=== PATIENT | female | born 2000 | race Caucasian/White ===

== ENCOUNTER → 2024-08-01 08:00 | Outpatient (BNV) | payer OTHER, SELFPAY | PROVIDERS: Visit Provider Psychiatry & Neurology Psychiatry | DX: F32.2 Major depressive disorder, single episode, severe without psychotic features (principal); F41.1 Generalized anxiety disorder | CPT/HCPCS: 90834; 99213; 99214 ==

== ENCOUNTER 2024-08-22 10:30 | Outpatient (RCR) | payer OTHER, SELFPAY ==
[2024-08-01 09:38] VITALS: BMI 33.6
[2024-08-01 09:39] VITALS: BP 130/72; PULSE 80; TEMP 36.9
--- NOTE | 2024-08-01 10:37 | PC.NURSE ---
Patient reports she does not have a PCP. Maryuri called [facility] in my office and scheduled a New PCP appointment with [facility]. [address] [place] [address]. Office Number [phone]. Appointment on October 30, 2024 at 4:00pm with Dr. Steven Adam.
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
--- NOTE | 2024-08-01 15:59 | P.HPPSP_ITS ---
HPI Date of Service: 08/01/24 Chief Complaint: MDD,DANIS Sources of Information: patient interviewed, chart reviewed and crisis/core team assessment reviewed HPI Narrative: This is the 1st PHP admission for this 24-year-old female referred by her [facility] therapist to gain some tools to improve functioning. ?I have always had struggles with anxiety and depression. Anxiety has been lifelong particularly generalized anxiety has always been prone to worrying, more recently experiencing increased heart rate shortness of breath chest tightness in other panic attack symptoms at times. Anxiety also has been interfering with sleep and notices onset of sleep has been disturbed particularly in the past week. She says lately though her depression has been worse. Appetite is recently worse. Depression severity between a 6 and an 8 out of 10. She has been on Lexapro since April 2024, dose has been slowly titrated to 15 mg daily. She says she has not been able to tell if the Lexapro was helpful. She was then started on Wellbutrin XL 150 mg 1 week ago. She denies any clear precipitant over the last few months although there has been psychosocial stressors that have been compounding depression anxiety including issues with her family including her mother and brother getting into an argument brother was kicked out of the house there is currently a restraining order. She also reports break-up with her boyfriend about a month ago and notes that her best friend is currently contending with her own mental health issues and was admitted inpatient so she has not been able to talk with her. Past Psychiatric History: No IPLOC, PHP, respite or detox/rehab admissions SA: Denies SIB: Denies Denies any history suggestive obsessions rituals or other symptoms of OCD Denies any EDB Therapist: Tavia Villalta Psych provider: Corin Patton PCP: none No previous medication trials aside from current medications CURRENT MEDICATIONS: Lexapro 15 mg qd Wellbutrin XL 150 mg qam [facility] Medical History (Updated 08/03/24 @ 00:32 by Montserrat Wilcox MD) Eczema Chronic back pain Concussion Diagnostics Vital Signs (24Hr): Vital Signs - 24 hr 08/01/24 09:39 Temperature 98.4 F Pulse Rate 80 Blood Pressure 130/72 BMI result Body Mass Index 33.6 Meds/Allergies Meds Home Medications ?Medication ?Instructions ?Recorded ?Confirmed ?Type bupropion HCl 150 mg 24 hr tablet, 150 mg PO DAILY 08/01/24 08/01/24 History extended release norethindrone 1 mg-ethinyl 1 tab PO DAILY 08/01/24 08/01/24 History estradiol 20 mcg (21)-iron 75 mg (7) tablet Allergies Allergies Allergy/AdvReac Type Severity Reaction Status Date / Time lactose AdvReac Gastrointestinal Verified 08/01/24 12:46 Upset pineapple AdvReac Flushing Verified 08/01/24 09:38 Mental Status Exam Mental Status Exam Narrative: Alert, oriented, in no acute distress. Calm, cooperative, engaged. No psychomotor agitation or neurovegetative retardation. Eye contact maintained. Mood depressed, anxious, affect variable, mood congruent. Speech normal. Thought process linear, coherent. Thought content related to stressors, denies any hopelessness or SI. Denies any aggressive ideation or HI. No paranoia or delusional content elicited. No evidence of psychosis. Insight and judgment - fair but adequate. Assessment & Plan Assessment & Plan (1) MDD (major depressive disorder), severe: Status: Acute Code(s): F32.2 - Major depressive disorder, single episode, severe without psychotic features (2) DANIS (generalized anxiety disorder): Status: Acute Code(s): F41.1 - Generalized anxiety disorder Plan Admit to [facility] VS reviewed: afebrile, BP 130/72;?80 bpm stop WEllbutrin XL 150 mg qam (likely too long-acting, interfering with onset of sleep) start Wellbutrin SR 100 mg qam start guanfacine ER 1 mg qam continue other regular medications: Lexapro 15 mg qd ssjgqmotuowwq-wbbukvaqb-iswh daily Routine lab work ordered as indicated EKG, routine for baseline QTc for medication considerations as indicated UDS as indicated [facility] reviewed Continue to monitor as per protocol Patient educated on: diagnosis and medication risk/benefits Informed Consent: understands Reason for continued partial hosp. stay Substantial Risk for: inability to function and med/psych decompensation Certification I certify that partial hospital treatment is medically necessary due to the symptoms and problems resulting from the patient's mental illness and the failure to treat the patient at the partial hospital level of care would likely result in the patient requiring inpatient psychiatric care which could not be prevented at a less intensive level of care. Time Spent With Patient Time: Total time managing care of this patient today __90__ minutes.
[2024-08-05 11:46] VITALS: BP 108/60; PULSE 68
--- NOTE | 2024-08-11 18:53 | HO.PHPPROGNO ---
Subjective Subjective Date of Service: 08/11/24 Reason For Visit: MDD,DANIS Interim History: ?I have just been very down. I am still in the same place? Last week felt like things were easing up on and Sunday but then over the weekend continued to otherwise feel depressed has been weepy, sad. ?I get hungry but I do not want to eat?. She has been sleeping more she did feel it was good to switch to the Wellbutrin SR as the XL formulation she found was in fact making it difficult to fall asleep in that area things are better. She complains of anxiety during the day and feeling like she has adjusted to being here still finding groups little anxiety provoking however she has not yet started on guanfacine. Depression severity 8/10, cognitive anxiety 7.5/10, somatic anxiety 6.5 to 7/10. She did not denies any SI HI AH or VH Medication Compliance: Yes Side effects from medications: No Attending Groups: Yes Review of Systems Acute medical concerns: No Mental Status Exam Mental Status Exam Narrative: Alert, oriented, in no acute distress. Calm, cooperative, engaged. No psychomotor agitation or neurovegetative retardation. Eye contact maintained. Mood depressed, anxious, affect sad, tearful. Speech normal. Thought process linear, coherent. Thought content related to stressors, denies any hopelessness or SI. Denies any aggressive ideation or HI. No paranoia or delusional content elicited. No evidence of psychosis. Insight and judgment intact. Diagnostics Vital Signs (24Hr): BMI result Body Mass Index 33.6 Assessment & Plan Assessment & Plan (1) MDD (major depressive disorder), severe: Status: Acute Code(s): F32.2 - Major depressive disorder, single episode, severe without psychotic features (2) DANIS (generalized anxiety disorder): Status: Acute Code(s): F41.1 - Generalized anxiety disorder Plan Cont PHP start Abilify 1-2 mg qhs cont Wellbutrin SR 100 mg qam start guanfacine ER 1 mg qam cont Lexapro to 10 mg qd cont other regular medications: vvzdfqfnlssww-amcycpmzu-wdtv daily Routine lab work ordered as indicated EKG, routine for baseline QTc for medication considerations as indicated UDS as indicated Continue to monitor Certification I certify that partial hospital treatment is medically necessary due to the symptoms and problems resulting from the patient's mental illness and the failure to treat the patient at the partial hospital level of care would likely result in the patient requiring inpatient psychiatric care which could not be prevented at a less intensive level of care. Total time managing care of this patient today ____ minutes. Discharge Plan Discharge Attending provider: Montserrat Wilcox Additional Instructions: New PCP appointment with [facility] [place] [address] [place] [address]. Office Number [phone]. Appointment on October 30, 2024 at 4:00pm with Dr. Steven Adam. Medications: New bupropion HCl 100 mg tablet sustained-release 12 hr 100 mg PO QAM Qty: 15 0RF guanfacine 1 mg tablet extended release 24 hr 1 mg PO DAILY Qty: 15 0RF aripiprazole 2 mg tablet 2 mg PO BEDTIME Qty: 14 0RF Continued escitalopram oxalate 10 mg tablet 10 mg PO DAILY Qty: 15 0RF escitalopram oxalate 5 mg tablet 5 mg PO DAILY Qty: 15 0RF Rx Instructions: Take with 10 mg tab total dose 15 mg daily. No Action norethindrone-e.estradiol-iron 1 mg-20 mcg (21)/75 mg (7) tablet 1 tab PO DAILY bupropion HCl 150 mg tablet extended release 24 hr 150 mg PO DAILY Stand Alone Forms: Patient Portal Discharge page Print Language: Spanish
--- NOTE | 2024-08-15 12:58 | HO.PHPPROGNO ---
Subjective Subjective Date of Service: 08/15/24 Reason For Visit: MDD,DANIS Interim History: Patient seen for due to ensuing panic attack this morning after finding out she is slated for discharge today. Patient was fairly labile and tearful at onset of [place]outner. She says she has been crying on and off for the past 2-3 days. Feeling still very weepy, difficulty containing her emotions which are mostly sad. Anxiety is problematic and persist through out the day. She says she does not feel prepared for discharge today does not feel she has steady enough to be without the supports, ?I do not want to backtrack but I am not sure what to do I just feel overwhelmed .She has been tolerating the medication, felt that it may have been helping but was a modest improvement at start on 1 mg but now feels this has been clips by her anxieties around discharge and is feeling consumed by apprehension about leaving the program before being stabilized by medication. We will continue to titrate Abilify to to 2-3 mg over the weekend will advocate for an extension in her stay at [facility]. Medication Compliance: Yes Side effects from medications: No Attending Groups: Yes Review of Systems Acute medical concerns: No Mental Status Exam Mental Status Exam Narrative: Alert, oriented, in no acute distress. Restless, tearful, shut down. Mood depressed, anxious, affect sad, tearful. Speech normal. Thought process linear, coherent. Thought content related to stressors, demoralization, helplessness, transient hopelessness, denies any SI. Denies any aggressive ideation or HI. No paranoia or delusional content elicited. No evidence of psychosis. Insight and judgment intact. Diagnostics Vital Signs (24Hr): BMI result Body Mass Index 33.6 Assessment & Plan Assessment & Plan (1) MDD (major depressive disorder), severe: Status: Acute Code(s): F32.2 - Major depressive disorder, single episode, severe without psychotic features (2) DANIS (generalized anxiety disorder): Status: Acute Code(s): F41.1 - Generalized anxiety disorder Plan Extend [facility] increase Abilify to 2-3 mg qhs cont Wellbutrin SR 100 mg qam cont guanfacine ER 1 mg qam cont Lexapro to 10 mg qd cont other regular medications: qmisognptejpj-xmmkrmgwy-wlmu daily Routine lab work ordered as indicated EKG, routine for baseline QTc for medication considerations as indicated UDS as indicated Continue to monitor Patient educated on: diagnosis and medication risk/benefits Informed Consent: understands Reason for contiued partial hosp. stay Substantial Risk for: inability to function, rapid decompensation and med/psych decompensation Certification I certify that partial hospital treatment is medically necessary due to the symptoms and problems resulting from the patient's mental illness and the failure to treat the patient at the partial hospital level of care would likely result in the patient requiring inpatient psychiatric care which could not be prevented at a less intensive level of care. Total time managing care of this patient today __30__ minutes. Discharge Plan Discharge Attending provider: Montserrat Wilcox Additional Instructions: New PCP appointment with [facility] [place], [place] [address] [place] [address]. Office Number [phone]. Appointment on October 30, 2024 at 4:00pm with Dr. Steven Adam. Medications: New guanfacine 1 mg tablet extended release 24 hr 1 mg PO DAILY Qty: 15 0RF aripiprazole 2 mg tablet 2 mg PO BEDTIME Qty: 14 0RF Continued escitalopram oxalate 10 mg tablet 10 mg PO DAILY Qty: 15 0RF escitalopram oxalate 5 mg tablet 5 mg PO DAILY Qty: 15 0RF Rx Instructions: Take with 10 mg tab total dose 15 mg daily. Changed bupropion HCl 100 mg tablet sustained-release 12 hr 100 mg PO BID Qty: 30 0RF No Action norethindrone-e.estradiol-iron 1 mg-20 mcg (21)/75 mg (7) tablet 1 tab PO DAILY bupropion HCl 150 mg tablet extended release 24 hr 150 mg PO DAILY Stand Alone Forms: Patient Portal Discharge page Print Language: Senegalese
--- NOTE | 2024-08-15 15:07 | HO.PHP ---
The patient was referred for an extension in the Program and this clinician received a call from the insurance and the concurrent review was scheduled for August 18, 2024 at 11:00 am.
--- NOTE | 2024-08-18 23:58 | HO.PHPPROGNO ---
Subjective Subjective Date of Service: 08/18/24 Reason For Visit: MDD,DANIS Medication Compliance: Yes Side effects from medications: No Attending Groups: Yes Review of Systems Acute medical concerns: No Mental Status Exam Mental Status Exam Narrative: Alert, oriented, in no acute distress. Restless, tearful, shut down. Mood depressed, anxious, affect sad, tearful. Speech normal. Thought process linear, coherent. Thought content related to stressors, demoralization, helplessness, transient hopelessness, denies any SI. Denies any aggressive ideation or HI. No paranoia or delusional content elicited. No evidence of psychosis. Insight and judgment intact. Diagnostics Vital Signs (24Hr): BMI result Body Mass Index 33.6 Assessment & Plan Assessment & Plan (1) MDD (major depressive disorder), severe: Status: Acute Code(s): F32.2 - Major depressive disorder, single episode, severe without psychotic features (2) DANIS (generalized anxiety disorder): Status: Acute Code(s): F41.1 - Generalized anxiety disorder Plan Extend PHP increase Abilify to 2-3 mg qhs cont Wellbutrin SR 100 mg qam cont guanfacine ER 1 mg qam cont Lexapro to 10 mg qd cont other regular medications: utxrzpinmeywq-ujrkbbpnx-rytz daily Routine lab work ordered as indicated EKG, routine for baseline QTc for medication considerations as indicated UDS as indicated Continue to monitor Patient educated on: diagnosis and medication risk/benefits Informed Consent: understands Reason for contiued partial hosp. stay Substantial Risk for: inability to function, rapid decompensation and med/psych decompensation Certification I certify that partial hospital treatment is medically necessary due to the symptoms and problems resulting from the patient's mental illness and the failure to treat the patient at the partial hospital level of care would likely result in the patient requiring inpatient psychiatric care which could not be prevented at a less intensive level of care. Total time managing care of this patient today _30___ minutes. Discharge Plan Discharge Attending provider: Montserrat Wilcox Additional Instructions: New PCP appointment with [facility] [place], [place]. [address] [place] [address]. Office Number [phone]. Appointment on October 30, 2024 at 4:00pm with Dr. Steven Adam. Medications: New guanfacine 1 mg tablet extended release 24 hr 1 mg PO DAILY Qty: 15 0RF aripiprazole 5 mg tablet 5 mg PO BEDTIME Qty: 30 0RF Continued escitalopram oxalate 10 mg tablet 10 mg PO DAILY Qty: 15 0RF escitalopram oxalate 5 mg tablet 5 mg PO DAILY Qty: 15 0RF Rx Instructions: Take with 10 mg tab total dose 15 mg daily. aripiprazole 2 mg tablet 2 mg PO BEDTIME Qty: 30 0RF Changed bupropion HCl 100 mg tablet sustained-release 12 hr 100 mg PO BID Qty: 30 0RF No Action norethindrone-e.estradiol-iron 1 mg-20 mcg (21)/75 mg (7) tablet 1 tab PO DAILY bupropion HCl 150 mg tablet extended release 24 hr 150 mg PO DAILY Stand Alone Forms: Patient Portal Discharge page Print Language: Tajik
--- NOTE | 2024-08-22 23:23 | HO.PHPPROGNO ---
Subjective Subjective Date of Service: 08/22/24 Reason For Visit: MDD,DANIS Interim History: Patient seen for follow-up, anticipating discharge at the end of program today.? Reports no acute issues or concerns. Medication compliant, medications well-tolerated. Denies any adverse effects.? Mood is stable.? Denies any hopelessness or SI. Denies thoughts of harming self or others at this time. Denies any aggressive ideation or HI. Denies any paranoia or AH or VH. Sleep, appetite, energy stable. Alert, oriented, in no acute distress. Calm, cooperative. Mood stable, affect appropriate. Speech normal. Thought process linear, coherent, more goal-directed. Thought content related to stressors, future-oriented, denies any helplessness, hopelessness or SI.? No aggressive ideation or HI. No paranoia or delusional content elicited. No evidence of psychosis. Insight and judgment fair-good. Discharge from [facility] Continue regular medications Refills sent to pharmacy Will defer further medication management to outpatient provider *Safety plan reviewed *Discharge diagnoses, treatment course, discharge plan have been reviewed with patient (including medication regime, medication management, potential side effects) as well as treatment rationale were also revisited *Discharge paperwork signed and given to patient, copy sent for scanning to chart Diagnostics Vital Signs (24Hr): BMI result Body Mass Index 33.6 Assessment & Plan Certification I certify that partial hospital treatment is medically necessary due to the symptoms and problems resulting from the patient's mental illness and the failure to treat the patient at the partial hospital level of care would likely result in the patient requiring inpatient psychiatric care which could not be prevented at a less intensive level of care. Total time managing care of this patient today ____ minutes. Discharge Plan Discharge Attending provider: Montserrat Wilcox Additional Instructions: New PCP appointment with [facility] [place], [place] [address] [place] [address]. Office Number [phone]. Appointment on October 30, 2024 at 4:00pm with Dr. Steven Adam. Medications: New aripiprazole 5 mg tablet 5 mg PO BEDTIME Qty: 30 0RF Continued norethindrone-e.estradiol-iron 1 mg-20 mcg (21)/75 mg (7) tablet 1 tab PO DAILY escitalopram oxalate 10 mg tablet 10 mg PO DAILY Qty: 15 0RF bupropion HCl 100 mg tablet sustained-release 12 hr 100 mg PO QAM Qty: 30 0RF aripiprazole 2 mg tablet 2 mg PO BEDTIME Qty: 30 0RF guanfacine 1 mg tablet extended release 24 hr 1 mg PO DAILY Qty: 30 0RF Discontinued bupropion HCl 150 mg tablet extended release 24 hr 150 mg PO DAILY escitalopram oxalate 5 mg tablet 5 mg PO DAILY Rx Instructions: Take with 10 mg tab total dose 15 mg daily. Stand Alone Forms: Patient Portal Discharge page Patient Education: Depression (ED), Depression (DC), Anxiety (ED) Print Language: Pashto
== END 2024-08-22 23:59 | disposition home or self-care (01) ==
LOC: HO.PHPA 10:30
PROVIDERS: Visit Provider Psychiatry & Neurology Psychiatry
DX: F32.2 Major depressive disorder, single episode, severe without psychotic features (principal); F41.1 Generalized anxiety disorder; Z79.899 Other long term (current) drug therapy
CPT/HCPCS: 90791; 90853

== ENCOUNTER → 2025-01-02 10:30 | Outpatient (BNV) | payer OTHER, SELFPAY | PROVIDERS: Visit Provider Psychiatry & Neurology Psychiatry | DX: F32.2 Major depressive disorder, single episode, severe without psychotic features (principal); F41.1 Generalized anxiety disorder | CPT/HCPCS: 99499 ==

== ENCOUNTER 2025-01-09 10:15 | Outpatient (RCR) | payer OTHER, SELFPAY ==
[2024-12-25 13:29] VITALS: BMI 34.8
[2024-12-25 13:30] VITALS: BP 108/72; PULSE 76; RESP 16; TEMP 36.4; O2SAT 99
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
--- NOTE | 2024-12-25 14:43 | HO.PHP ---
Client's case has been opened and reviewed in teams
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
--- NOTE | 2025-01-02 12:03 | P.PNPSP_ITS ---
Subjective Subjective Date of Service: 01/02/25 Reason For Visit: depression Interim History: Difficulty with self regulating, especially getting overwhelmed by stressors, Anxiety about problem-solving, trying to make concrete steps towards managing problems. Feels she has a lot on her plate and there is tension from many demands pulling on her at once. Easily tearful at times, anxiety persists, somewhat in body, but nmostly cognitive as existential angst. Can not say for sure what guanfacine doing, denies adverse effects. History of ADHD, has never had a stimulant trial Medication Compliance: Yes Side effects from medications: No Attending Groups: Yes Review of Systems Acute medical concerns: No Mental Status Exam Mental Status Exam Narrative: Alert, oriented, in no acute distress. Calm, cooperative, inhibited, but engageable. No psychomotor agitation or neurovegetative retardation. Eye contact maintained. Mood depressed, anxious, affect variable, mood congruent. Speech normal. Thought process linear, coherent. Thought content related to stressors, denies any hopelessness or SI. Denies any aggressive ideation or HI. No paranoia or delusional content elicited. No evidence of psychosis. Insight and judgment - fair-good. Diagnostics Vital Signs (24Hr): BMI result Body Mass Index 34.8 Assessment & Plan Assessment & Plan (1) MDD (major depressive disorder), severe: Status: Acute Code(s): F32.2 - Major depressive disorder, single episode, severe without psychotic features (2) DANIS (generalized anxiety disorder): Status: Acute Code(s): F41.1 - Generalized anxiety disorder Plan continue PHP start Vyvanse 10 mg qam increase guanfacine ER 1-2 mg qam continue Wellbutrin SR 100 mg qd continue Lexapro 10 mg qd continue Abilify 5 mg qd continue other regular medicaitons Routine lab work ordered as indicated EKG, routine for baseline QTc for medication considerations as indicated UDS as indicated Continue to monitor Patient educated on: diagnosis and medication risk/benefits Informed Consent: understands Reason for contiued partial hosp. stay Substantial Risk for: inability to function and med/psych decompensation Certification I certify that partial hospital treatment is medically necessary due to the symptoms and problems resulting from the patient's mental illness and the failure to treat the patient at the partial hospital level of care would likely result in the patient requiring inpatient psychiatric care which could not be prevented at a less intensive level of care. Total time managing care of this patient today __30__ minutes. Discharge Plan Discharge Attending provider: Montserrat Wilcox Medications: New lisdexamfetamine 10 mg capsule 10 mg PO QAM Qty: 30 0RF Rx Instructions: Partial Fill upon patient request. Continued norethindrone-e.estradiol-iron 1 mg-20 mcg (21)/75 mg (7) tablet 1 tab PO DAILY escitalopram oxalate 10 mg tablet 10 mg PO DAILY Qty: 15 0RF bupropion HCl 100 mg tablet sustained-release 12 hr 100 mg PO QAM Qty: 30 0RF guanfacine 1 mg tablet extended release 24 hr 1 mg PO DAILY Qty: 30 0RF aripiprazole 5 mg tablet 5 mg PO BEDTIME Qty: 30 0RF No Action aripiprazole 2 mg tablet 1 mg PO BEDTIME Stand Alone Forms: Patient Portal Discharge page Print Language: Monegasque
--- NOTE | 2025-01-09 09:56 | HO.PHPPROGNO ---
Subjective Subjective Date of Service: 01/09/25 Reason For Visit: depression Interim History: 24 yo who found partial hospitalization helpful - feeling improved on med changes advised pt to discuss ? lorazepam snf potential not good for patient - given age and risk of dependence/tolerance- pt denies si/hi/psychosis Medication Compliance: Yes Side effects from medications: No Attending Groups: Yes Review of Systems Acute medical concerns: No Medical Review of Systems: unchanged Mental Status Exam Mental Status Exam Narrative: Alert, cooperative good eye contact - no si/hi/psychosis- future oriented Diagnostics Vital Signs (24Hr): BMI result Body Mass Index 34.8 Assessment & Plan Assessment & Plan (1) MDD (major depressive disorder), severe: Status: Acute Code(s): F32.2 - Major depressive disorder, single episode, severe without psychotic features (2) DANIS (generalized anxiety disorder): Status: Acute Code(s): F41.1 - Generalized anxiety disorder Plan treatment here was : inc abilify from 3.5 to 5mg/day and add on lorazepam daily 0.5mg - to be reassesed by outpt re daily benzo and inc guanfacine er to 2mg was done- no s/e have been noticed noticed benefit from php and med changes Patient educated on: medication risk/benefits Reason for contiued partial hosp. stay Substantial Risk for: stable for discharge Certification I certify that partial hospital treatment is medically necessary due to the symptoms and problems resulting from the patient's mental illness and the failure to treat the patient at the partial hospital level of care would likely result in the patient requiring inpatient psychiatric care which could not be prevented at a less intensive level of care. Total time managing care of this patient today ____ minutes. Discharge Plan Discharge Attending provider: Montserrat Wilcox Additional Instructions: hold off on vyvanse trial till can be addressed by outpt provider [facility] therapist and outpt prescriber Medications: New lorazepam 0.5 mg tablet 0.5 mg PO DAILY PRN (Reason: anxiety) Qty: 14 0RF guanfacine 2 mg tablet extended release 24 hr 2 mg PO DAILY Qty: 14 0RF Continued norethindrone-e.estradiol-iron 1 mg-20 mcg (21)/75 mg (7) tablet 1 tab PO DAILY escitalopram oxalate 10 mg tablet 10 mg PO DAILY Qty: 15 0RF bupropion HCl 100 mg tablet sustained-release 12 hr 100 mg PO QAM Qty: 30 0RF aripiprazole 5 mg tablet 5 mg PO BEDTIME Qty: 30 0RF Discontinued guanfacine 1 mg tablet extended release 24 hr 1 mg PO DAILY Qty: 30 0RF aripiprazole 2 mg tablet 1 mg PO BEDTIME Stand Alone Forms: Patient Portal Discharge page Patient Education: Depression (DC) Print Language: Belizean
== END 2025-01-09 23:59 | disposition home or self-care (01) ==
LOC: HO.PHPA 10:15
PROVIDERS: Visit Provider Psychiatry & Neurology Psychiatry
DX: F32.2 Major depressive disorder, single episode, severe without psychotic features (principal); F41.1 Generalized anxiety disorder; Z79.899 Other long term (current) drug therapy
CPT/HCPCS: 90791; 90853